=== PATIENT | male | born 1985 | race African-American/Black ===

== ENCOUNTER 2017-10-23 12:14 | Emergency (ER) | payer SELFPAY ==
[~2017-10-23] VITALS: Ht 185.4 cm; Wt 99.8 kg
[2017-10-23] MEDS ORDERED: IBUPROFEN600 MG ORAL (12:26)
[2017-10-23] MEDS ORDERED: AMOXICILLIN500 MG ORAL (12:26)
[2017-10-23] MEDS ORDERED: CORTISPORIN EAR10 ML RIGHT EAR (12:26)
--- NOTE | 2017-10-23 12:45 | Emergency Room Report ---
History of Present Illness General Chief Complaint: Earache Source: Patient Present Illness HPI The patient is a 32-year-old male with a history of HIV presenting for right ear pain for the past 5 days. Unsure of CD4 count but states it is undetectable. He states that this began after swimming. Pain has been increasing and is now a 9/10 dull ache to the right ear. Does not radiate. Worse with touch. He also states that he has decreased hearing in that ear. He denies other symptoms including fever, chills, sore throat, dizziness Allergies: Coded Allergies: No Known Allergies (Unverified , 10/23/17) Patient History Past Medical History: see triage record Pertinent Family History: none Reviewed Nursing Documentation: PMH: Agreed, PSxH: Agreed Nursing Documentation-PMH Past Medical History: No History, Except For Review of Systems All Other Systems: negative except mentioned in HPI Physical Exam Vital Signs Date Time Temp Pulse Resp B/P (MAP) Pulse Ox O2 Delivery O2 Flow Rate FiO2 10/23/17 12:17 98.1 91 18 115/77 97 Room Air Sp02 EP Interpretation: reviewed, normal General Appearance: no apparent distress, alert, GCS 15, non-toxic Head: normocephalic, atraumatic Eyes: bilateral eye normal inspection, bilateral eye PERRL ENT: normal pharynx, no angioedema, normal voice, other - R ear: EAC is erythematous and edematous with white DC. TM also erythematous and bulging Neck: full range of motion, supple/symm/no masses Respiratory: chest non-tender, lungs clear, normal breath sounds, speaking full sentences Musculoskeletal: back normal, gait/station normal, normal range of motion, non- tender, calf tenderness Neurologic: alert, oriented x3, responsive, motor strength/tone normal, sensory intact, speech normal Psychiatric: judgement/insight normal, memory normal, mood/affect normal, no suicidal/homicidal ideation Skin: normal color, no rash, warm/dry, well hydrated Lymphatic: adenopathy - R cervical Medical Decision Making PA Attestation Dr. Santos is my supervising physician. Patient management was discussed with my supervising physician Diagnostic Impression: Primary Impression: Otitis media Qualified Codes: H66.001 - Acute suppurative otitis media without spontaneous rupture of ear drum, right ear Additional Impression: Otitis externa of right ear Qualified Codes: H60.501 - Unspecified acute noninfective otitis externa, right ear ER Course The patient is a 32-year-old male with a history of HIV presenting for right ear pain for the past 5 days Differential diagnosis include but not limited to otitis externa, otitis media, mastoiditis, sinusitis, pharyngitis Physical exam: Vitals within normal limits. No apparent distress HEENT exam: There is R tympanic membrane erythema and bulging. External auditory also has erythema, edema, and white DC. + tenderness to palpation over tragus. No nasal discharge. No tonsillar edema or erythema. No exudate Lungs are clear to auscultation bilaterally This appears to be concurrent otitis media and externa. The patient will be discharged home with a prescription for amoxicillin and Cortisporin and will followup with PMD. ER precautions are given Last Vital Signs Date Time Temp Pulse Resp B/P (MAP) Pulse Ox O2 Delivery O2 Flow Rate FiO2 10/23/17 12:17 98.1 91 18 115/77 97 Room Air Status: improved Disposition: HOME, SELF-CARE Condition: Improved Scripts Amoxicillin* (AMOXIL*) 500 Mg Capsule 500 MG ORAL Q12HR, #20 CAP Prov: KAMAR LONGORIA P.A. 10/23/17 Ibuprofen* (MOTRIN*) 600 Mg Tablet 600 MG ORAL Q8H Y for For Pain, #30 TAB 0 Refills Prov: KAMAR LONGORIA P.A. 10/23/17 Neomycin/Polymyxin B Sulf/Hc* (CORTISPORIN EAR SOLUTION*) 10 Ml Solution 4 DROP RIGHT EAR QID, #10 ML 0 Refills Prov: KAMAR LONGORIA P.A. 10/23/17 Referrals: NOT CHOSEN [facility]/,REFERRING (PCP) Patient Instructions: Otitis Externa, Otitis Media, Adult Additional Instructions: I discussed my findings with the patient. All questions and concerns have been answered. Treatment and medication compliance have been addressed. I advised the patient that they need to follow up with PMD in 3-5 days. Return to ED if symptoms worsen, new symptoms arise, or if needed for any reason. Patient verbalized understanding of discharge instructions. KAMAR LONGORIA Oct 23, 2017 12:45
[2017-10-23 12:46] VITALS: BP 128/76
[2017-10-23 12:48] VITALS: BP 128/76
== END 2017-10-23 12:52 | disposition home or self-care (01) ==
LOC: EMR 12:25
DX: H66.91 Otitis media, unspecified, right ear (principal); H60.91 Unspecified otitis externa, right ear
CPT/HCPCS: 99283